=== PATIENT | female | born 1930 | race Caucasian/White ===

== ENCOUNTER 2017-09-14 12:36 | Emergency (ER) | payer MEDICARE, OTHER ==
--- NOTE | 2017-09-14 13:13 | EDM.PDOC ---
ED HPI GENERAL MEDICAL PROBLEM - General Stated Complaint: FALL Time Seen by Provider: 09/14/17 12:36 Source of Information: Reports: Patient, Family History Limitations: Reports: Physical Impairment - History of Present Illness INITIAL COMMENTS - FREE TEXT/NARRATIVE: 87 y.o.w.f with h/o arthritis, on ASA, came to the ed after she fell over here cane while getting gas for her car at a gas station. Mechanical fall, Pt called her niece to bring her to the ed. On arrival, the pt was OX3 c/o about a bump at her r forehead and left knee. Pt was able to ambulate. No LOC. Pt is not on Coumadin. BP 198/88 on arrival No F/C no N/V/D or dizziness/lightheadedness. Onset: Today Onset Date: 09/14/17 Onset Time: 08:00 Duration: Minutes:, Constant Location: Reports: Head, Neck, Upper Extremity, Right Quality: Reports: Ache, Dull Severity: Mild Improves with: Reports: Cold Therapy Worsens with: Reports: Movement Context: Reports: Other (fall) - Related Data Allergies Allergy/AdvReac Type Severity Reaction Status Date / Time No Known Allergies Allergy Verified 09/14/17 12:47 Home Meds: Home Meds [place]-3/DHA/Epa/Fish Oil [[place]-3 Fish Oil Softgel] 1 ea PO DAILY 04/13/15 [ History] Pravastatin [Pravachol] 40 mg PO DAILY 04/13/15 [History] Calcium Carbonate/Vitamin D3 [Calcium 250+D] 2 each PO DAILY 04/17/15 [History] Pantoprazole [Protonix] 40 mg PO DAILY 04/17/15 [History] Aspirin 81 mg PO DAILY PRN 09/14/17 [History] Social & Family History - Tobacco Use Smoking Status *Q: Never Smoker - Alcohol Use Days Per Week of Alcohol Use: 0 - Recreational Drug Use Recreational Drug Use: No Drug Use in Last 12 Months: No ED ROS GENERAL - Review of Systems Review Of Systems: See Below Constitutional: Reports: No Symptoms HEENT: Reports: Other (periorbital, forehead swelling) Respiratory: Reports: No Symptoms Cardiovascular: Reports: No Symptoms Endocrine: Reports: No Symptoms GI/Abdominal: Reports: No Symptoms : Reports: No Symptoms Musculoskeletal: Reports: Other (left ant knee swelling) Skin: Reports: Other (hematoma r face and left ant knee) Neurological: Reports: No Symptoms Psychiatric: Reports: No Symptoms Hematologic/Lymphatic: Reports: No Symptoms Immunologic: Reports: No Symptoms ED EXAM, HEAD INJURY - Physical Exam Exam: See Below Exam Limited By: Physical Impairment General Appearance: Alert, WD/WN, Mild Distress Head: Facial Swelling, Raccoon Eyes Eyes: Right Eye: Periorbital Changes, Bilateral Eye: EOMI, Normal Inspection, PERRL Ears: Normal External Exam, Normal Canal Nose: Normal Inspection, Normal Mucousa Throat/Mouth: Normal Inspection, Normal Lips Neck: Non-Tender, Full Range of Motion Respiratory: No Respiratory Distress, Lungs Clear Cardiovascular: Normal Peripheral Pulses, Regular Rate, Rhythm, No Edema GI/Abdominal Exam: Normal Bowel Sounds, Soft, Non-Tender (Female) Exam: Deferred Rectal (Female) Exam: Deferred Back Exam: Normal Inspection, Full Range of Motion Extremities: Normal Range of Motion, Joint Swelling (left anterior knee) Neurologic: cloud automation tester II-XII nml As Tested, No Motor/Sensory Deficits, Normal Mood/ Affect, Oriented x 3 Skin: Ecchymosis (r face and left ant knee) - [place] Coma Score Best Eye Response (Scottie): (4) Open Spontaneously Best Verbal Response ([place]): (5) Oriented Best Motor Response ([place]): (6) Obeys Commands Scottie Total: 15 Course - Vital Signs Text/Narrative:: 87 y.o.w.f with h/o arthritis, on ASA, came to the ed after she fell over here cane while getting gas for her car at a gas station. Mechanical fall, Pt called her niece to bring her to the ed. On arrival, the pt was OX3 c/o about a bump at her r forehead and left knee. Pt was able to ambulate. No LOC. Pt is not on Coumadin. BP 198/88 on arrival No F/C no N/V/D or dizziness/lightheadedness. PE: periorbital SQ hematoma with EOMI, Intact vision. PEER, Hematoma left ant knee, with FROM, no open wound Imaging: Head/neck NAD, poss chronic sinusitis as per RAD Labs: CBC WNL Glc 98, GFR >60 Na 140 K 3.9 Cr 0.9 BUN 17 UA: No UTI, INR 0.99 Impression: Mechanical Fall Tx: MAGIGE wrap, ICE, pt refused painmeds Reexam: Imroved, her BP was 153/73 on D/C Pt was ambulating Plan: D/C with family, with instructions Last Recorded V/S: Last Vital Signs Temp 36.3 C 09/14/17 14:55 Pulse 78 09/14/17 14:55 Resp 16 09/14/17 14:55 BP 158/73 H 09/14/17 14:55 Pulse Ox 100 09/14/17 14:55 - Orders/Labs/Meds Labs: Laboratory Tests 09/14/17 09/14/17 09/14/17 Range/Units 13:15 13:15 13:15 WBC 6.6 (4.5-12.0) X10-3/uL RBC 4.14 (3.23-5.20) x10(6)uL Hgb 13.5 (11.5-15.5) g/dL Hct 40.1 (30.0-51.3) % MCV 97.0 H (80-96) fL MCH 32.7 (27.7-33.6) pg MCHC 33.7 (32.2-35.4) g/dL RDW 12.2 (11.5-15.5) % Plt Count 183 (125-369) X10(3)uL MPV 8.6 (7.4-10.4) fL Neut % (Auto) 70.5 (46-82) % Lymph % (Auto) 14.8 (13-37) % [place] % (Auto) 8.4 (4-12) % Eos % (Auto) 5 (1.0-5.0) % Baso % (Auto) 1 (0-2) % Neut # (Auto) 4.6 (1.6-8.3) # Lymph # (Auto) 1.0 (0.6-5.0) # [place] # (Auto) 0.6 (0.0-1.3) # Eos # (Auto) 0.3 (0.0-0.8) # Baso # (Auto) 0.1 (0.0-0.2) # PT 10.0 (8.7-11.1) INR 0.99 (0.89-1.13) Sodium 140 (135-145) mmol/L Potassium 3.9 (3.5-5.3) mmol/L Chloride 104 (100-110) mmol/L Carbon Dioxide 24 (23-29) mmol/L BUN 17 (8-23) mg/dL Creatinine 0.8 (0.6-1.3) mg/dL Est Cr Clr Drug Dosing 45.42 mL/min Estimated GFR (MDRD) > 60 (>60) BUN/Creatinine Ratio 21.3 H (9-20) Glucose 98 (80-116) mg/dL Calcium 9.7 (8.6-10.2) mg/dL Urine Color (YELLOW) Urine Appearance (CLEAR) Urine pH (5.0-6.5) Ur Specific [place] (1.010-1.025) Urine Protein (NEGATIVE) mg/dL Urine Glucose (UA) (NEGATIVE) mg/dL Urine Ketones (NEGATIVE) mg/dL Urine Occult Blood (NEGATIVE) Urine Nitrite (NEGATIVE) Urine Bilirubin (NEGATIVE) Urine Urobilinogen (NEGATIVE) mg/dL Ur Leukocyte Esterase (NEGATIVE) Urine RBC (0) Urine WBC (0) Ur Squamous Epith Cells (NS,R,O) Urine Bacteria (NS) 09/14/17 Range/Units 14:10 WBC (4.5-12.0) X10-3/uL RBC (3.23-5.20) x10(6)uL Hgb (11.5-15.5) g/dL Hct (30.0-51.3) % MCV (80-96) fL MCH (27.7-33.6) pg MCHC (32.2-35.4) g/dL RDW (11.5-15.5) % Plt Count (125-369) X10(3)uL MPV (7.4-10.4) fL Neut % (Auto) (46-82) % Lymph % (Auto) (13-37) % [place] % (Auto) (4-12) % Eos % (Auto) (1.0-5.0) % Baso % (Auto) (0-2) % Neut # (Auto) (1.6-8.3) # Lymph # (Auto) (0.6-5.0) # [place] # (Auto) (0.0-1.3) # Eos # (Auto) (0.0-0.8) # Baso # (Auto) (0.0-0.2) # PT (8.7-11.1) INR (0.89-1.13) Sodium (135-145) mmol/L Potassium (3.5-5.3) mmol/L Chloride (100-110) mmol/L Carbon Dioxide (23-29) mmol/L BUN (8-23) mg/dL Creatinine (0.6-1.3) mg/dL Est Cr Clr Drug Dosing mL/min Estimated GFR (MDRD) (>60) BUN/Creatinine Ratio (9-20) Glucose (80-116) mg/dL Calcium (8.6-10.2) mg/dL Urine Color Yellow (YELLOW) Urine Appearance Clear (CLEAR) Urine pH 8.0 H (5.0-6.5) Ur Specific [place] 1.010 (1.010-1.025) Urine Protein Negative (NEGATIVE) mg/dL Urine Glucose (UA) Normal (NEGATIVE) mg/dL Urine Ketones Negative (NEGATIVE) mg/dL Urine Occult Blood Negative (NEGATIVE) Urine Nitrite Negative (NEGATIVE) Urine Bilirubin Negative (NEGATIVE) Urine Urobilinogen Normal (NEGATIVE) mg/dL Ur Leukocyte Esterase Small H (NEGATIVE) Urine RBC 0-5 (0) Urine WBC 0-5 (0) Ur Squamous Epith Cells Rare (NS,R,O) Urine Bacteria Few H (NS) Departure - Departure Time of Disposition: 14:23 Disposition: Home, Self-Care 01 Condition: Good Clinical Impression: Subcutaneous hematoma Head injury without concussion or intracranial hemorrhage Qualifiers: Encounter type: initial encounter Qualified Code(s): S09.90XA - Unspecified injury of head, initial encounter Traumatic hematoma of face Qualifiers: Encounter type: initial encounter Qualified Code(s): S00.83XA - Contusion of other part of head, initial encounter - Discharge Information Instructions: Head Injury, Adult, [id number], Hematoma, [id number] Referrals: Jeovany Garcia MD [Primary Care Provider] - Forms: ED Department Discharge Additional Instructions: Please hold aspirin for one week, please apply pressure and ICE to affected areas. Please f/u with your PMR in next 2 days, Please come back to the ed if your symptoms get worse acutely
[2017-09-14 15:02] VITALS: BP 158/73
--- NOTE | 2017-09-14 15:58 | CT ---
INDICATION: Fell, hit right frontal area. No loss of consciousness. CT HEAD WITHOUT CONTRAST: Serial contiguous 2.5 and 5-mm sections were obtained through the brain without contrast, 09/14/2017. No comparisons were available. Total Exam DLP = 949.36 mGy-cm. No cranial fracture site was identified. There are some opacified ethmoidal air cells with thickened linings in others and thickening of the linings of the bases of the frontal air cells, as well as thickening of the linings of the maxillary antra, especially the right. Similarly, thickening of the lining of the left sphenoidal air cell is noted with a frothy appearance to material within it and suggestion of some minimal thickening of the lining of the right sphenoidal air cell. Findings suggest paranasal sinusitis. Mastoid air cells appear to be well aerated. There is a scalp hematoma noted right frontal area. Soft tissue swelling is noted overlying the right orbit and globe also. Calcifications are noted in the vertebral and internal carotid arteries. No shift of midline structures or significant ventricular abnormality could be identified. No definite abnormal areas of density were identified - no bleeding site or hematoma was seen. There is suggestion of a tiny decreased density in the frontal horn of the right internal capsule, which could represent a tiny lacunar infarct. IMPRESSION: 1. No acute intracranial abnormality. 2. Question minimal lacunar infarct right internal capsule, anterior limb. 3. Arterial calcifications noted. 4. Moderately large right frontal scalp hematoma with additional soft tissue swelling overlying the right orbit. 5. Findings suggest pansinusitis. Report was called to Dr. Tripathi at approximately 1402 hours, 09/14/2017. [facility]ENTERShakira
--- NOTE | 2017-09-14 16:00 | CT ---
INDICATION: Fell, hit right frontal area. No loss of consciousness. CT CERVICAL SPINE: Spiral 2.5-mm axial sections were obtained through the cervical spine with sagittal and coronal reconstructions, and revealed fairly severe degenerative changes at the atlantoodontoid joint with virtually no remaining joint space. Hypertrophic spurring, subchondral cystic changes, and sclerosis are seen at that joint with fairly extensive periarticular calcifications felt to be degenerative/arthritic in nature. Total Exam DLP = 459.60 mGy-cm. Prevertebral space and bone density overall appear to be normal. Degenerative disk disease is suggested at C2-3, C3-4, to a lesser extent C4-5 and then more severely at C5-6 and much more severely at C6-7, C7-T1, and T1-2. Hypertrophic spurring is present with some narrowing of neural foramina noted, appearing most prominent, as far as narrowing, at C5-6 and C6-7. Anterolisthesis is noted at C4-5. A definite acute fracture or dislocation was not identified. IMPRESSION: 1. No definite acute fracture or dislocation. 2. Fairly severe osteoarthritic changes and disk disease, especially at the atlantoodontoid joint and C5-6, C6-7 levels. Report was called to Dr. Tripathi at approximately 1402 hours, 09/14/2017. [facility]
--- NOTE | 2017-09-14 16:06 | CR ---
INDICATION: Trauma, fall. LEFT KNEE: Three views of the left knee revealed calcifications in the area of the suprapatellar bursa, which could represent dystrophic calcification from previous injury, or possibly osteochondral joint body. Severe hypertrophic degenerative changes and marked narrowing of the lateral patellofemoral joint space noted. Hypertrophic degenerative changes are also noted at the intercondylar notch and medial intercondylar spine, with mild hypertrophic changes at the medial and lateral aspects of the tibia and medial femur. Chondrocalcinosis is also suggested, most likely degenerative in nature. A definite acute fracture or dislocation was not identified. Arterial calcifications are noted posteriorly. IMPRESSION: 1. No acute fracture or dislocation. 2. Osteoarthritis. MTDD
== END 2017-09-14 14:55 | disposition home or self-care (01) ==
LOC: FB.ED 12:36
DX: S09.90XA Unspecified injury of head, initial encounter (principal); S00.83XA Contusion of other part of head, initial encounter; W19.XXXA Unspecified fall, initial encounter
CPT/HCPCS: 36415; 70450; 72125; 73562-LT; 80048; 81001; 85025; 85610; 99284